=== PATIENT | female | born 1990 | race Asian ===

== ENCOUNTER 2020-02-09 17:14 | Emergency (ER) | payer OTHER ==
[2020-02-09] MEDS ORDERED: ONDANSETRON 4 MG/2 ML VIAL IVP STA (17:28)
[2020-02-09] MEDS ORDERED: HYDROmorphone 1 MG/ML CARPUJECT IVP STA (17:28)
--- NOTE | 2020-02-09 17:28 | ED Physician Documentation ---
PD HPI ABD PAIN - Stated complaint Stated Complaint: ABD PAIN - History obtained from History obtained from: Patient - Additional information Additional information: 29-year-old woman with history of type 2 diabetes and remote open appendectomy presents with fairly sudden onset left-sided pelvic pain starting this afternoon. No history of ovarian cyst. She had a Nexplanon which was removed about a week ago. Review of Systems Ten Systems: 10 systems reviewed and negative Constitutional: reports: Reviewed and negative Cardiac: reports: Reviewed and negative Respiratory: reports: Reviewed and negative PD PAST MEDICAL HISTORY - Allergies Allergies/Adverse Reactions: Allergies Allergy/AdvReac Type Severity Reaction Status Date / Time No Known Drug Allergies Allergy Verified 02/09/20 17:28 PD ED PE NORMAL - Vitals Vital signs reviewed: Yes - General General: Alert and oriented X 3, No acute distress - Cardiac Cardiac: RRR, No murmur - Respiratory Respiratory: No respiratory distress, Clear bilaterally - Abdomen Abdomen: Normal bowel sounds, Soft, Other (Quite tender in the left low abdomen without surgical signs) - Back Back: No CVA TTP, No spinal TTP - Derm Derm: Normal color, Warm and dry - Extremities Extremities: No edema, No calf tenderness / cord - Neuro Neuro: Alert and oriented X 3, Normal speech Results - Vitals Vitals: Vital Signs - 24 hr 02/09/20 02/09/20 17:20 18:43 Temperature 98.9 C H Heart Rate 97 89 Respiratory 18 18 Rate Blood Pressure 165/106 H 142/90 H O2 Saturation 100 99 Oxygen O2 Source Room air - Labs Labs: Laboratory Tests 02/09/20 02/09/20 02/09/20 17:32 17:43 17:43 WBC 10.0 RBC 5.00 Hgb 14.2 Hct 44.7 MCV 89.4 MCH 28.4 MCHC 31.8 L RDW 11.3 L Plt Count 309 MPV 8.7 Neut # (Auto) 6.0 Lymph # (Auto) 2.9 Ford # (Auto) 0.6 Eos # (Auto) 0.4 Baso # (Auto) 0.0 Absolute Nucleated RBC 0.00 Nucleated RBC % 0.0 Sodium 137 Potassium 3.7 Chloride 98 L Carbon Dioxide 24 Anion Gap 15.0 H BUN 8 Creatinine 0.5 Estimated GFR (MDRD) 147 Glucose 105 H Calcium 9.7 Total Bilirubin 0.6 AST 23 ALT 41 Alkaline Phosphatase 51 Total Protein 7.8 Albumin 4.4 Globulin 3.4 Albumin/Globulin Ratio 1.3 Lipase 22 Urine Color LT. YELLOW Urine Clarity CLEAR Urine pH 6.0 Ur Specific [place] 1.010 Urine Protein NEGATIVE Urine Glucose (UA) NEGATIVE Urine Ketones TRACE Urine Occult Blood NEGATIVE Urine Nitrite NEGATIVE Urine Bilirubin NEGATIVE Urine Urobilinogen 0.2 (NORMAL) Ur Leukocyte Esterase NEGATIVE Ur Microscopic Review NOT INDICATED Urine Culture Comments NOT INDICATED Urine HCG, Qual NEGATIVE PD MEDICAL DECISION MAKING - ED course ED course: 29-year-old woman presents with left pelvic pain a week after having Nexplanon removed which may be causative. CT imaging demonstrates potential thick-walled bladder but not corresponding to any abnormalities on urinalysis, otherwise negative. On repeat examination she was nontender. Departure - Departure Disposition: 01 Home, Self Care Clinical Impression: Pelvic pain Condition: Good Record reviewed to determine appropriate education?: Yes Instructions: ED Pelvic Pain [facility] Comments: Ibuprofen as needed for pain, return for new or worsening symptoms or if not better in the next 24 hours. Follow-up with your primary care physician, next available appointment.
[2020-02-09 17:40] LABS: BILIRUBIN,URINE NEGATIVE (NEGATIVE); GLUCOSE, URINE (UA) NEGATIVE (NEGATIVE); KETONES,URINE (UA) TRACE mg/dL (NEGATIVE); LEUKOCYTE ESTERASE, URINE NEGATIVE (NEGATIVE); NITRITE,URINE NEGATIVE (NEGATIVE); OCCULT BLOOD,URINE NEGATIVE (NEGATIVE); PROTEIN,URINE NEGATIVE (NEGATIVE); UROBILINOGEN,URINE 0.2 (NORMAL) E.U./dL (NORMAL)
[2020-02-09 17:42] LABS: CLARITY,URINE CLEAR (CLEAR); HCG UR QUAL NEGATIVE
[2020-02-09 17:59] LABS: BASOPHILS % (AUTO) 0.4 %; EOSINOPHILS # (AUTO) 0.4 10^3/uL (0.0-0.7); EOSINOPHILS % (AUTO) 3.8 %; HGB - HEMOGLOBIN 14.2 g/dL (12.0-16.0); LYMPHOCYTES # (AUTO) 2.9 10^3/uL (1.5-3.5); LYMPHOCYTES % (AUTO) 29.1 %; MEAN CORPUSCULAR HEMOGLOBIN 28.4 pg (27.0-31.0); MEAN CORPUSCULAR HGB CONC 31.8 g/dL (32.0-36.0); MEAN CORPUSCULAR VOLUME 89.4 fL (81.0-99.0); MEAN PLATELET VOLUME 8.7 fL (7.9-10.8); MONOCYTES # (AUTO) 0.6 10^3/uL (0.0-1.0); NEUTROPHILS % (AUTO) 60.4 %; PLT - PLATELET COUNT 309 10^3/uL (130-450); RED CELL DISTRIBUTION WIDTH 11.3 % (12.0-15.0)
[2020-02-09 18:12] LABS: ALBUMIN 4.4 g/dL (3.2-5.5); ALBUMIN/GLOBULIN RATIO 1.3 (1.0-2.2); BILIRUBIN,TOTAL 0.6 mg/dL (0.2-1.0); CALCIUM 9.7 mg/dL (8.5-10.3); CREATININE 0.5 mg/dL (0.4-1.0); TOTAL PROTEIN 7.8 g/dL (6.7-8.2)
[2020-02-09] MEDS ORDERED: IOVERSOL 320 100 ML VIAL IVP ONE ×2 (18:24→18:39)
[2020-02-09 18:44] VITALS: BP 142/90
--- NOTE | 2020-02-09 18:55 | CT Report ---
PROCEDURE: Abdomen/Pelvis W INDICATIONS: IV only, L abd pain CONTRAST: IV CONTRAST: Optiray 320 ml: 100 PO CONTRAST: *NO PO CONTRAST TECHNIQUE: After the administration of 100 cc Optiray 320 IV contrast, 5 mm thick sections acquired from the brandon phragms to the symphysis. 5 mm thick coronal and sagittal reformats were acquired. For radiation do se reduction, the following was used: automated exposure control, adjustment of mA and/or kV accordi ng to patient size. COMPARISON: None. FINDINGS: Image quality: Excellent. ABDOMEN: Lung bases: Lung bases are clear. Heart size is normal. Solid organs: Liver and spleen are normal in size and enhancement. Gallbladder is normal. Biliary system is non dilated. Pancreas enhances normally. No adrenal nodules. Kidneys demonstrate normal size and enhancement, without hydronephrosis. Small left cortical renal cyst, too small to accuratel y characterize. Peritoneum and bowel: Bowel loops demonstrate normal wall thickness and caliber. No free fluid or a ir. Nodes and vessels: No retroperitoneal or mesenteric adenopathy by size criteria. Aorta and inferior vena cava are normal in size. Miscellaneous: No ventral hernias. PELVIS: Genitourinary: The uterus and ovaries appear normal. The urinary bladder wall is slightly thickened. No bladder calcifications.. Miscellaneous: No inguinal hernias or adenopathy. Bones: No suspicious bony lesions. No vertebral body compression fractures. IMPRESSION: 1. Urinary bladder wall thickening may indicate cystitis or under distention. Correlate clinically. 2. Otherwise normal CT. Reviewed by: Yolis Pitts MD on 02/09/2020 6:54 PM PST Approved by: Yolis Pitts MD on 02/09/2020 6:54 PM PST Station ID: [id number]
== END 2020-02-09 19:24 | disposition home or self-care (01) ==
LOC: ED 17:14
DX: R10.2 Pelvic and perineal pain (principal); E11.9 Type 2 diabetes mellitus without complications; Z90.89 Acquired absence of other organs
CPT/HCPCS: 36415; 74177; 80053; 81003; 81025; 83690; 85025; 96374; 99283; 99284; J1170; Q9967; 81001; 87086

== ENCOUNTER 2020-02-12 08:00 | Outpatient (CLI) | payer OTHER ==
[2020-02-12 11:59] LABS: CREATININE,URINE 228.3 mg/dL; MICROALBUM/CREATININE RATIO,UR 46.9 ug/mg (<30.0); MICROALBUMIN,URINE 10.7 mg/dL (0-300.0)
[2020-02-12 12:08] LABS: BASOPHILS % (AUTO) 0.6 %; EOSINOPHILS # (AUTO) 0.4 10^3/uL (0.0-0.7); HGB - HEMOGLOBIN 13.9 g/dL (12.0-16.0); LYMPHOCYTES # (AUTO) 2.1 10^3/uL (1.5-3.5); LYMPHOCYTES % (AUTO) 30.6 %; MEAN CORPUSCULAR HEMOGLOBIN 28.4 pg (27.0-31.0); MEAN CORPUSCULAR VOLUME 91.4 fL (81.0-99.0); MONOCYTES # (AUTO) 0.5 10^3/uL (0.0-1.0); MONOCYTES % (AUTO) 6.4 %; NEUTROPHILS # (AUTO) 3.9 10^3/uL (1.5-6.6); NEUTROPHILS % (AUTO) 55.3 %; PLT - PLATELET COUNT 327 10^3/uL (130-450); RED CELL DISTRIBUTION WIDTH 11.5 % (12.0-15.0)
[2020-02-12 12:12] LABS: ALBUMIN 4.2 g/dL (3.2-5.5); ALBUMIN/GLOBULIN RATIO 1.2 (1.0-2.2); ALKALINE PHOSPHATASE 45 IU/L (42-121); ALT ALANINE AMINOTRANSFERASE 49 IU/L (10-60); AST ASPARTATE AMINOTRANSFERASE 29 IU/L (10-42); BILIRUBIN,TOTAL 0.4 mg/dL (0.2-1.0); BUN - BLOOD UREA NITROGEN 9 mg/dL (6-20); CALCIUM 9.2 mg/dL (8.5-10.3); CARBON DIOXIDE - CO2 22 mmol/L (21-32); CHLORIDE 104 mmol/L (101-111); CHOL/HDL RATIO 3.4 (<4.4); CHOLESTEROL 172 mg/dL; CREATININE 0.5 mg/dL (0.4-1.0); GLUCOSE 123 mg/dL (70-100); HDL CHOLESTEROL 50 mg/dL; LDL CHOLESTEROL,CALCULATED 110 mg/dL; LDL/HDL RATIO 2.2 (<4.4); SODIUM 136 mmol/L (135-145); TOTAL PROTEIN 7.6 g/dL (6.7-8.2); VLDL CHOLESTEROL 12 mg/dL
[2020-02-12 12:20] LABS: HEMOGLOBIN A1c% 6.3 % (4.27-6.07)
== END 2020-02-12 23:59 | disposition home or self-care (01) ==
LOC: LAB.WCP 08:00
PROVIDERS: ATTEND Physician Assistant
DX: Z00.00 Encounter for general adult medical examination without abnormal findings (principal); Z79.899 Other long term (current) drug therapy; F41.1 Generalized anxiety disorder; R03.0 Elevated blood-pressure reading, without diagnosis of hypertension; E11.9 Type 2 diabetes mellitus without complications
CPT/HCPCS: 36415; 80053; 80061; 82043; 82570; 83036; 83721; 84443; 85025

== ENCOUNTER 2020-02-19 11:07 | Outpatient (CLI) | payer OTHER ==
[2020-02-19 11:41] VITALS: BP 109/70
--- NOTE | 2020-02-19 11:41 | SLEEP CARE CONSULTATION ---
Information from patient questionnaire entered by Maribeth Arvizu. I have reviewed and concur with the information entered by Maribeth Arvizu. This document represents the service I personally performed and the decisions made by me, Fide Sanz ARNP. History of Present Illness Service Date and Time: 02/19/2020 1107 Reason for Visit: New patient Chief Complaint: reports: Unrefreshed sleep (sometimes), Snoring, Observed pauses in breathing. denies: Insomnia, Excessive daytime sleepiness, Fatigue, Frequent awakenings at night Date of Onset: 1 year or more Usual bedtime: 3148-7308, occasionally 0000 Time it takes to fall asleep: 30-40 minutes, occasionally 60+ minutes Snores at night: Yes Observed to quit breathing while asleep: Yes Sleeps alone due to snoring: No Number of times waking at night: 2 Reasons for waking at night: reports: Snoring, Other (when wakes up). denies: Choking, Gasping for air Toss, Turn, or Twitch while sleeping: Yes Recalls having dreams: Yes Usually gets out of bed at: 0600 Feels refreshed in the morning: No Morning headache: No Sleepy or fatigued during the day: Yes Ever fallen asleep while driving: No Takes day naps: Yes (10-20 mins 1 x a week) Dreams during day naps: No Prior sleep studies: No Additional HPI information: I had the pleasure of seeing IGOR NEWBERRY today regarding the possibility of her having a sleep disorder. Her current complaints are snoring, heavily breathing when sleeping and has had observed pauses in breathing. She states that some days she does feel rested but other day she is fatigued. She has just been st arted on medication for hypertension. Her brothers and father snore as well but no diagnosis of sleep apnea. - Parasomnia Symptoms Ever been unable to move upon waking from sleep: No Walks in sleep: No Talks in sleep: Yes Ever acted out dreams in sleep: Yes Ever felt weak in the knees when startled or emotional: No Bothered by creepy, crawly, restless sensations in legs: No Problems with memory or concentration: No Subjective Initial [place] Sleepiness Scale score: 10 (in 2019) Past Medical History Past Medical History: reports: Hypertension, Diabetes, Asthma. denies: Coronary Heart Disease, Arrythmia, Anemia, Anxiety, Depression, GERD Social History The patient's occupation is a [employer]. Patient is and lives in [place]. Have you smoked in the past 12 months: No Alcohol use: Yes Alcohol amount and frequency: occasionally Caffeine use: Yes Caffeine amount and frequency: 1 cup/day Family History Family history of sleep disordered breathing: No Family Hx Sleep Apnea: Father: Snoring, Sibling: Snoring Allergies and Home Medications Drug allergies reviewed: Yes (NKDA) Home medication list reviewed: Yes Allergy and home medication list: Trulicity Metformin Albuterol just started high blood pressure medication, unsure of name Tylenol as needed Review of Systems Weight gain over past 5 years: 25 Weight loss over past 5 years: 10 Cardiovascular: reports: high blood pressure. denies: palpitations, chest pain, irregular heart rate or pulse Respiratory: reports: chronic cough. denies: shortness of breath Gastrointestinal: reports: heartburn. denies: difficulty swallowing Neurological: reports: headaches. denies: seizure, head trauma, speech dysfunction, gait or balance problems Psychiatric: denies: anxiety, depression, claustrophobia Ear/Nose/Throat: reports: wisdom teeth removed (still has 2 of them). denies: nasal congestion, sinus problems, nose bleeds, dry mouth/throat, injury to nose, tonsillectomy Endocrine: reports: excessive thirst, increased appetite, increased urination Musculoskeletal: reports: back pain, muscle pain or cramping Immunologic: denies: allergies to food or environment Physical Exam Blood Pressure: 109/70 Cuff size: wrist Heart Rate: 80 O2 Saturation: 99 Height: 4 ft 11 in Weight: 150 lb Body Mass Index: 30.2 BMI Classification: Obese Neck circumference: 15 (inches) Nostrils: patent to airflow Turbinates: swollen Mouth and throat: narrow oropharynx Hard palate: arched Uvula visualization: 50% Mallampati Class II Tongue: enlarged in size with teeth gee on lateral edges Tonsils: 2+ Chin and jaw: normal size and position Neck: normal w/o lymphadenopathy or thyromegaly Heart: regular rate and rhythm Lungs: clear bilaterally Impression and Plan 1. Suspected Obstructive Sleep Apnea-Hypopnea Syndrome, as suggested by a history of loud and irregular snoring, observed cessation of breath while asleep, unrefreshed sleep, and cognitive impairment. I reviewed with patient that a narrow oropharynx and obesity are common predisposing factors for obstructive sleep apnea-hypopnea syndrome. I recommend proceeding to polysomnography to confirm the diagnosis and to assess severity. If the patient has significant sleep disordered breathing, a manual CPAP titration study will also be performed to find the optimal treatment pressure. I informed the patient of what the sleep studies involve and after some discussion, obtained agreement to proceed. The pathophysiology of obstructive sleep apnea-hypopnea syndrome was discussed with the patient and health risks of cardiovascular and cerebrovascular disease if not treated. AAS brochure for obstructive sleep apnea-hypopnea syndrome given and reviewed. Risks of drowsy driving discussed in detail and patient advised to avoid long distance driving and to snout puller at th e first sign of drowsiness. Patient agreed to plan. * Schedule polysomnography +- manual CPAP titration study. * Avoid long distance driving or driving when feeling sleepy. * Avoid alcohol, sedative and muscle relaxant around bedtime. * Attempt to lose weight. * Review instructions provided by trained office staff on how to prepare for the sleep study. * Return for follow-up after sleep study completed. Counseling Topics: Weight loss health impact Visit Type: In Office Provider Statement: I spent 100% of the Face to Face Visit with the patient with greater than 50% spent counseling the patient and coordination of care.
== END 2020-02-19 11:08 | disposition home or self-care (01) ==
LOC: SC 11:07
PROVIDERS: ATTEND Nurse Practitioner Family
DX: R06.83 Snoring (principal); R06.81 Apnea, not elsewhere classified; G47.8 Other sleep disorders; R41.89 Other symptoms and signs involving cognitive functions and awareness; E66.9 Obesity, unspecified; Z68.30 Body mass index [BMI] 30.0-30.9, adult
CPT/HCPCS: 99203; 99212

== ENCOUNTER 2020-04-28 20:13 | Outpatient (CLI) | payer OTHER | END 2020-04-28 20:14 | disposition home or self-care (01) | LOC: SC 20:13 | PROVIDERS: ATTEND Nurse Practitioner Family | DX: G47.63 Sleep related bruxism (principal); E66.3 Overweight; Z68.30 Body mass index [BMI] 30.0-30.9, adult | CPT/HCPCS: 95810 ==

== ENCOUNTER 2020-05-06 08:17 | Outpatient (CLI) | payer OTHER ==
--- NOTE | 2020-05-06 09:16 | SLEEP CARE CONSULTATION ---
Information from patient questionnaire entered by Brenda Beatty. I have reviewed and concur with the information entered by Brenda Beatty. This document represents the service I personally performed and the decisions made by , Fide Sanz ARNP. History of Present Illness Service Date and Time: 05/06/2020 08 Initial [place] Sleepiness Scale score: 10 (in 2019) Current [place] Sleepiness Scale score: 10 Additional HPI information: IGOR NEWBERRY returns for follow up and results of the recently performed polysomnography. The patient was informed of the following findings: no significant sleep disordered breathing with an average AHI of 1.3 and kurt oxygen saturation of 92%. Bruxism noted. I explained the pathophysiology behind obstructive sleep apnea. Patient does not have sleep apnea and was advised how weight gain could increase the risk of developing sleep apnea in the future. Patient has moderate to loud snoring. Snoring can be reduced by weight loss. Weight loss is best achieved with diet consult. Patient instructed to contact PCP for referral. Snoring can also be treated with an oral appliance from a dentist. Advised to check insurance coverage. In addition, an ENT evaluation can be do to see if other treatment is indicated. Patient counseled not drink alcohol less than 4 hours before bedtime as it can increase snoring and apnea. Patient was cautioned about risks of drowsy driving until sleepiness symptoms resolve. Sleep Study - Results Type of Sleep Study: Polysomnography Prior sleep studies: No Polysomnography/Home Sleep Study results: IMPRESSION: The quality of the study is good. The patient had normal sleep efficiency. The sleep architecture was normal as well. Respiratory monitoring showed no significant sleep disordered breathing (AHI = 1.3) or hypoxia (kurt oxygen saturation of 92%). The rare respiratory events occurred during REM sleep (supine AHI = 1.5; non-supine = 0.00). Snore was moderate to loud in intensity. There was no significant periodic leg movement of sleep. Cardiac rhythm was normal sinus rhythm without significant arrhythmia. No abnormal behavior (parasomnia) observed during the night. Bruxism observed. Allergies and Home Medications Drug allergies reviewed: Yes (NKDA) Home medication list reviewed: Yes (new medications) Allergy and home medication list: Labetalol 100 mg 2 x a day Hydroxine 50 mg PRN Review of Systems Review of systems same as previous: Yes (no changes) Physical Exam Heart Rate: 72 O2 Saturation: 98 Height: 4 ft 11 in Weight: 147 lb Body Mass Index: 29.7 BMI Classification: Overweight Impression and Plan 1. Snoring but no significant sleep disordered breathing. Patient advised that often weight loss will reduce snoring as well as apnea risk. An oral appliance can also be used for snoring. This would require a dental consultation. Patient cautioned not to use other online appliances as can cause bite issues. A list of accredited dentists in area and one local dentist who makes oral appliances given. Patient is advised to check if insurance will cover. An ENT consult can also be helpful to determine if any other treatment is an option. 2. Bruxism, treatment as needed. Patient advised that she may follow up with her dentist for evaluation of any damage from bruxism and see if she needs a mouth guard. Patient cautioned not to use other online appliances as can cause bite issues. She voiced understanding. * Follow up with dentist for oral appliance for snoring and/or bruxism. * Attempt to lose weight * Avoid alcohol consumption near bedtime * The patient is cautioned about driving until sleepiness is completely resolved. * Return as needed. Counseling Topics: Weight loss health impact Visit Type: In Office Time Spent with Patient (minutes): 15 Provider Statement: I spent 100% of the Face to Face Visit with the patient with greater than 50% spent counseling the patient and coordination of care.
== END 2020-05-06 08:18 | disposition home or self-care (01) ==
LOC: SC 08:17
PROVIDERS: ATTEND Nurse Practitioner Family
DX: R06.83 Snoring (principal); G47.63 Sleep related bruxism; E66.3 Overweight; Z68.29 Body mass index [BMI] 29.0-29.9, adult
CPT/HCPCS: 99212

== ENCOUNTER 2020-05-27 08:00 | Outpatient (CLI) | payer OTHER ==
[2020-05-27 12:53] LABS: CREATININE,URINE 77.5 mg/dL; MICROALBUM/CREATININE RATIO,UR 20.6 ug/mg (<30.0); MICROALBUMIN,URINE 1.6 mg/dL (0-300.0)
[2020-05-27 13:24] LABS: ESTIMATED AVERAGE GLUCOSE 134 mg/dL (70-100); HEMOGLOBIN A1c% 6.3 % (4.27-6.07)
== END 2020-05-27 23:59 | disposition home or self-care (01) ==
LOC: LAB.WCP 08:00
PROVIDERS: ATTEND Physician Assistant
DX: E11.9 Type 2 diabetes mellitus without complications (principal)
CPT/HCPCS: 36415; 82043; 82570; 83036

== ENCOUNTER 2020-05-31 00:23 | Emergency (ER) | payer OTHER ==
[2020-05-31] MEDS ORDERED: KETOROLAC 60 MG/2 ML VIAL IM STA (00:59)
[2020-05-31] MEDS ORDERED: CHERRY SYRUP 10 ML UDC PO ONE (00:59)
[2020-05-31] MEDS ORDERED: DEXAMETHASONE 10 MG/ML VIAL PO STA (00:59)
--- NOTE | 2020-05-31 01:03 | ED Physician Documentation ---
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 She feels her hand is a bit weaker than usual and she has been using a heating pack to her neck as well as a traction pillow. She feels that she gets about an hours relief out of the traction pillow. Review of Systems Constitutional: denies: Fever Eyes: denies: Decreased vision Ears: denies: Ear pain Nose: denies: Congestion Throat: denies: Sore throat Cardiac: denies: Chest pain / pressure, Palpitations Respiratory: denies: Dyspnea, Cough GI: denies: Abdominal Pain, Nausea, Vomiting, Constipation, Diarrhea : denies: Dysuria, Frequency Skin: denies: Rash Musculoskeletal: reports: Neck pain, Extremity pain, Joint pain. denies: Back pain, Extremity swelling Neurologic: reports: Numbness. denies: Generalized weakness, Focal weakness PD PAST MEDICAL HISTORY - Past Medical History Past Medical History: Yes Cardiovascular: Hypertension Endocrine/Autoimmune: Type 2 diabetes - Past Surgical History Past Surgical History: Yes General: Appendectomy - Present Medications Home Medications: Ambulatory Orders Medication Instructions Recorded Confirmed Cyclobenzaprine [Flexeril] 10 mg PO TID PRN #20 tablet 05/31/20 HYDROcod/ACETAM 5/325 [[place] 5/325] 1 - 2 ea PO Q6H PRN #12 tablet 05/31/20 Labetalol [Trandate] 100 mg PO BID 05/31/20 05/31/20 Metformin HCl [Fortamet] 1,000 mg PO BID 05/31/20 05/31/20 - Allergies Allergies/Adverse Reactions: Allergies Allergy/AdvReac Type Severity Reaction Status Date / Time No Known Drug Allergies Allergy Verified 05/31/20 00:27 - Social History Does the pt smoke?: No Smoking Status: Never smoker Does the pt drink ETOH?: No Does the pt have substance abuse?: No - Immunizations Immunizations are current?: Yes - POLST Patient has POLST: No PD ED PE NORMAL - Vitals Vital signs reviewed: Yes (hypertensive ) - General General: Alert and oriented X 3, No acute distress, Well developed/nourished - HEENT HEENT: Atraumatic, PERRL, EOMI - Neck Neck: Supple, no meningeal sign, No bony TTP - Respiratory Respiratory: No respiratory distress - Derm Derm: Normal color, Warm and dry, No rash - Extremities Extremities: No deformity, No edema - Neuro Neuro: Alert and oriented X 3, 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 I am unable to demonstrate weakness of spinner hand, she is able to spread her fingers equally and able to do thumb to fingers. ) Eye Opening: Spontaneous Motor: Obeys Commands Verbal: Oriented GCS Score: 15 - Psych Psych: Normal mood, Normal affect Results - Vitals Vitals: Vital Signs - 24 hr 05/31/20 05/31/20 00:27 00:35 Temperature 36.6 C 36.6 C Heart Rate 90 90 Respiratory 16 16 Rate Blood Pressure 140/90 H 140/90 H O2 Saturation 99 99 Oxygen O2 Source Room air PD MEDICAL DECISION MAKING - ED course Complexity details: reviewed results, re-evaluated patient, considered differential, d/w patient ED course: 29-year-old female with symptoms consistent with a C7 cervical radiculopathy has been using a heating pack excessively and has excessive symptoms. She is not able to get into see a primary for least two more weeks. She has looked up her symptoms and she has not been successful with treatments that she has provided to her self. She did use a cervical traction pillow which is an inflatable traction pillow and she felt that this helped for about an hour. Her examination does not show obvious weakness and there is subjective numbness. The distribution of the patient's symptoms suggest a C7 disc. She is administered dexamethasone 10 mg orally and we will provide a short course of some pain medication a muscle relaxant. She has come to request advanced imaging which we are not able to do this evening. I did discuss with her that this is something we will require a prior authorization from her primary and that her symptoms will likely resolve prior to needing the scan. Departure - Departure Disposition: 01 Home, Self Care Clinical Impression: Cervical radiculopathy at C7 Condition: Stable Instructions: ED Cervical Radiculopathy Follow-Up: SILVIANO BYERS PA-C [Primary Care Provider] - Prescriptions: Cyclobenzaprine [Flexeril] 10 mg PO TID PRN #20 tablet PRN Reason: Spasms HYDROcod/ACETAM 5/325 [[place] 5/325] 1 - 2 ea PO Q6H PRN #12 tablet PRN Reason: Pain
[2020-05-31 01:21] VITALS: BP 138/89
== END 2020-05-31 01:20 | disposition home or self-care (01) ==
LOC: ED 00:23
DX: M54.12 Radiculopathy, cervical region (principal); I10 Essential (primary) hypertension; E11.9 Type 2 diabetes mellitus without complications; Z79.84 Long term (current) use of oral hypoglycemic drugs
CPT/HCPCS: 96372; 99283; 99284; A9270

== ENCOUNTER 2020-06-02 04:36 | Emergency (ER) | payer OTHER ==
--- NOTE | 2020-06-02 04:53 | ED Physician Documentation ---
History of Present Illness - Stated complaint Stated Complaint: RT SHOULDER PX - Chief complaint Chief Complaint: Ext Problem - History obtained from History obtained from: Patient - History of Present Illness Timing: How many weeks ago (2) Pain level now: 6 Improved by: rest Worsened by: partially exacerbated with movement right shoulder - Additonal information Additional information: c/o 2 weeks of atraumatic pain right neck and right trapezial ridge area with pain radiating down RUE to fingers (2nd, 3rd, 4th). 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 She was T+R from this ED 2 days ago for same. She says she has an appointment scheduled with her PMD but the soonest available isn't for another 2 weeks. She denies having a previous history of these symptoms. She says she took a vicodin (prescribed on the previous ED visit) last night and another dose (one tablet) this morning without relief. She is right hand dominant Review of Systems Constitutional: denies: Fever Skin: denies: Rash Musculoskeletal: reports: Neck pain, Extremity pain. denies: Extremity swelling, Joint swelling Neurologic: reports: Focal weakness (intermittent right hand agricultural economics teacher). denies: Numbness, Headache PD PAST MEDICAL HISTORY - Past Medical History Cardiovascular: Hypertension Endocrine/Autoimmune: Type 2 diabetes - Past Surgical History Past Surgical History: Yes General: Appendectomy - Present Medications Home Medications: Ambulatory Orders Medication Instructions Recorded Confirmed Cyclobenzaprine [Flexeril] 10 mg PO TID PRN #20 tablet 05/31/20 06/02/20 HYDROcod/ACETAM 5/325 [[place] 5/325] 1 - 2 ea PO Q6H PRN #12 tablet 05/31/20 06/02/20 Labetalol [Trandate] 100 mg PO BID 05/31/20 06/02/20 Metformin HCl [Fortamet] 1,000 mg PO BID 05/31/20 06/02/20 Oxycodone HCl/Acetaminophen 1 - 2 each PO Q6H PRN #14 tablet 06/02/20 [Percocet 5-325 mg Tablet] diazePAM [Valium] 5 mg PO BID PRN #15 tablet 06/02/20 - Allergies Allergies/Adverse Reactions: Allergies Allergy/AdvReac Type Severity Reaction Status Date / Time No Known Drug Allergies Allergy Verified 06/02/20 04:49 - Social History Does the pt smoke?: No Smoking Status: Never smoker Does the pt drink ETOH?: No Does the pt have substance abuse?: No - Immunizations Immunizations are current?: Yes - POLST Patient has POLST: No PD ED PE NORMAL - Vitals Vital signs reviewed: Yes - General General: Alert and oriented X 3, Well developed/nourished, Other (appears uncomfortable, tearful at times) - Neck Neck: Supple, no meningeal sign, No bony TTP - Cardiac Cardiac: RRR, No murmur - Respiratory Respiratory: No respiratory distress, Clear bilaterally - Derm Derm: Normal color, No rash - Extremities Extremities: Normal ROM s pain, No edema - Neuro Neuro: No motor deficit (strong and equal agricultural economics teacher strength), No sensory deficit (LTS intact in right hand, fingers) Results - Vitals Vitals: Vital Signs - 24 hr 06/02/20 06/02/20 04:40 06:27 Temperature 36.2 C L 36.5 C Heart Rate 79 63 Respiratory 18 16 Rate Blood Pressure 129/93 H 123/84 H O2 Saturation 100 98 Oxygen O2 Source Room air - Rads (name of study) chest xray Radiology: Prelim report reviewed, See rad report PD MEDICAL DECISION MAKING - ED course Complexity details: reviewed old records, reviewed results, re-evaluated patient, considered differential, d/w patient ED course: atraumatic pain mostly centered around the right trapezial ridge but also right side of neck and radiating down RUE. She has some degree of exacerbation with movement of the right shoulder, although she has intact ROM on exam (reports worse pain with ROM). unremarkable chest xray. further emergent testing is not indicated at this time. she is given IM toradol early in stay and on reevaluation she appears more comfortable. she is provided prescriptions for percocet and valium for analgesia and muscle relaxant property (valium), and instructed to only use these in place of the previous prescribed vicodin and flexeril. I instructed her to contact her primary care provider's office to inquire as to possibly being seen earlier than scheduled, and to return to the emergency department if worse. Her H+P are again c/w cervical radiculopathy Departure - Departure Disposition: 01 Home, Self Care Clinical Impression: Cervical radiculopathy Condition: Good Instructions: ED Cervical Radiculopathy Prescriptions: Oxycodone HCl/Acetaminophen [Percocet 5-325 mg Tablet] 1 - 2 each PO Q6H PRN #14 tablet PRN Reason: pain diazePAM [Valium] 5 mg PO BID PRN #15 tablet PRN Reason: Spasms Comments: You can take the percocet (oxycodone/acetaminophen) IN PLACE of the vicodin (hydrocodone/acetaminophen). Use whichever of the two medications is more effective and/or less side effects, but do not take both of these medications. You can take the valium (diazepam) IN PLACE of the flexeril (cyclobenzaprine). You can use whichever of the two medications is more effective and/or has less side effects, but do not take both of these medications. Discharge Date/Time: 06/02/20 06:34
[2020-06-02] MEDS ORDERED: KETOROLAC 60 MG/2 ML VIAL IM STA (05:17)
[2020-06-02 06:28] VITALS: BP 123/84
--- NOTE | 2020-06-02 10:19 | XRAY Report ---
PROCEDURE: Chest 2 View X-Ray INDICATIONS: right upper back / thoracic pain TECHNIQUE: 2 view(s) of the chest. COMPARISON: None. FINDINGS: Surgical changes and devices: None. Lungs and pleura: No pleural effusions or pneumothorax. Lungs are clear. Mediastinum: Mediastinal contours are normal. Heart size is normal. Bones and chest wall: No suspicious bony abnormalities. Soft tissues appear unremarkable. IMPRESSION: No acute pulmonary process. The above findings are concordant with preliminary report. Reviewed by: Maria Alejandra Prather MD on 06/02/2020 10:18 AM [facility] Approved by: Maria Alejandra Prather MD on 06/02/2020 10:18 AM [facility] Station ID: [id number]
== END 2020-06-02 06:34 | disposition home or self-care (01) ==
LOC: ED 04:36
DX: M54.12 Radiculopathy, cervical region (principal); E11.9 Type 2 diabetes mellitus without complications
CPT/HCPCS: 96372; 99283; 99284

== ENCOUNTER 2020-06-23 12:56 | Outpatient (CLI) | payer OTHER ==
--- NOTE | 2020-06-23 16:07 | XRAY Report ---
PROCEDURE: Cervical Spine w/Flex/Ext INDICATIONS: CERVICAL DISORDER WITH RADICULOPATHY TECHNIQUE: 7 views of the cervical spine were acquired. COMPARISON: None. FINDINGS: Bones: No fractures or dislocations to the T1 level. No suspicious bony lesions. There is loss of n ormal cervical lordosis. Mild disc space narrowing and endplate osteophyte formation at C5-C6 and C6- C7, indicating degenerative disc disease. There is limited range of motion with no significant change in alignment throughout limited range of motion. Soft tissues: Prevertebral soft tissues are normal in thickness. IMPRESSION: 1. Mild mid/lower cervical degenerative disc disease. 2. No instability throughout limited range of motion. 3. No acute fracture. No osseous lesion. If symptoms and/or clinical suspicion for pathology continue , further assessment with repeat plain films, or advanced imaging (e.g., CT, MRI, or bone scan) is re commended for further assessment. Reviewed by: Carri Barkley MD on 06/23/2020 4:06 PM PDT Approved by: Carri Barkley MD on 06/23/2020 4:06 PM PDT Station ID: [id number]
== END 2020-06-23 12:57 | disposition home or self-care (01) ==
LOC: DI.N 12:56
PROVIDERS: ATTEND Physician Assistant
DX: M50.322 Other cervical disc degeneration at C5-C6 level (principal)

== ENCOUNTER 2020-10-07 18:28 | Emergency (ER) | payer OTHER ==
[2020-10-07 18:44] VITALS: BP 146/90
--- NOTE | 2020-10-07 18:53 | ED Physician Documentation ---
PD HPI SKIN - Stated complaint Stated Complaint: LT BREAST PX/RED/HOT - Chief complaint Chief Complaint: Wound - History obtained from History obtained from: Patient - History of Present Illness Timing - onset: How many days ago (2-3) Timing - details: Gradual onset, Still present (worsening) Quality / character: Painful, Discolored (red patchy), Swelling. No: Draining Associated symptoms: No: Fever, Myalgias, N/V/D Contributing factors: Other (not , no piercings, no noted local injury). No: Exposed to Poison bety/oak, Insect bite /sting, Recent illness Recently seen: Not recently seen Review of Systems Constitutional: denies: Fever, Chills, Myalgias Nose: denies: Rhinorrhea / runny nose, Congestion Throat: denies: Sore throat Respiratory: denies: Cough PD PAST MEDICAL HISTORY - Past Medical History Cardiovascular: Hypertension Endocrine/Autoimmune: Type 2 diabetes - Past Surgical History Past Surgical History: Yes General: Appendectomy - Present Medications Home Medications: Ambulatory Orders Medication Instructions Recorded Confirmed Cyclobenzaprine [Flexeril] 10 mg PO TID PRN #20 tablet 05/31/20 06/02/20 HYDROcod/ACETAM 5/325 [[place] 5/325] 1 - 2 ea PO Q6H PRN #12 tablet 05/31/20 06/02/20 Labetalol [Trandate] 100 mg PO BID 05/31/20 06/02/20 Metformin HCl [Fortamet] 1,000 mg PO BID 05/31/20 06/02/20 Oxycodone HCl/Acetaminophen 1 - 2 each PO Q6H PRN #14 tablet 06/02/20 [Percocet 5-325 mg Tablet] diazePAM [Valium] 5 mg PO BID PRN #15 tablet 06/02/20 Ibuprofen [Motrin] 600 mg PO TID PRN #15 tab 10/07/20 cephALEXin [Keflex] 500 mg PO QID 5 Days #20 cap 10/07/20 - Allergies Allergies/Adverse Reactions: Allergies Allergy/AdvReac Type Severity Reaction Status Date / Time No Known Drug Allergies Allergy Verified 10/07/20 18:42 - Social History Does the pt smoke?: No Smoking Status: Never smoker Does the pt drink ETOH?: No Does the pt have substance abuse?: No - Immunizations Immunizations are current?: Yes - POLST Patient has POLST: No PD ED PE NORMAL - Vitals Vital signs reviewed: Yes - General General: Alert and oriented X 3, No acute distress, Well developed/nourished - Cardiac Cardiac: RRR, No murmur - Respiratory Respiratory: Clear bilaterally - Derm Derm: Normal color, Warm and dry, Other (left breast with redness in areas around the areola, with tenderness. No areas of fluctuance. Nipple appears normal. She states mild discharge yesterday, but none noted now. No skin sores noted. ) Results - Vitals Vitals: Oxygen O2 Source Room air PD MEDICAL DECISION MAKING - ED course Complexity details: considered differential (appears mastitis, non-post . No local skin lesions. ), d/w patient Departure - Departure Disposition: 01 Home, Self Care Clinical Impression: Mastitis in female Condition: Stable Record reviewed to determine appropriate education?: Yes Instructions: ED Breast Infec Follow-Up: SILVIANO BYERS PA-C [Primary Care Provider] - Prescriptions: cephALEXin [Keflex] 500 mg PO QID 5 Days #20 cap Ibuprofen [Motrin] 600 mg PO TID PRN #15 tab PRN Reason: Pain Comments: Warm moist towels to the area periodically through the day to improve blood flow to the area and help fight off the infection. Anti-inflammatory of ibuprofen 3 times a day with food for the next 3 to 5 days. Cephalexin antibiotic as directed 4 times a day for the next 5 days. I would anticipate improvement in this over the next 2 to 3 days and resolved certainly by 3 to 5 days. Recheck if not better in that timeframe or if worsening. Discharge Date/Time: 10/07/20 19:13
[2020-10-07] MEDS ORDERED: cephALEXin 250 MG CAPSULE PO STA (19:00)
[2020-10-07] MEDS ORDERED: IBUPROFEN 600 MG TABLET PO STA (19:00)
== END 2020-10-07 19:13 | disposition home or self-care (01) ==
LOC: ED 18:28
DX: N61.0 Mastitis without abscess (principal); E11.9 Type 2 diabetes mellitus without complications; I10 Essential (primary) hypertension
CPT/HCPCS: 99282; 99283; A9270

== ENCOUNTER 2020-12-08 08:00 | Outpatient (CLI) | payer OTHER ==
[2020-12-08 12:23] LABS: CALCIUM 9.2 mg/dL (8.5-10.3); CREATININE 0.5 mg/dL (0.4-1.0)
[2020-12-08 12:36] LABS: CREATININE,URINE 189.9 mg/dL; MICROALBUM/CREATININE RATIO,UR 15.3 ug/mg (<30.0); MICROALBUMIN,URINE 2.9 mg/dL (0-300.0)
[2020-12-08 13:15] LABS: ESTIMATED AVERAGE GLUCOSE 128 mg/dL (70-100); HEMOGLOBIN A1c% 6.1 % (4.27-6.07)
== END 2020-12-08 23:59 | disposition home or self-care (01) ==
LOC: LAB.S 08:00
PROVIDERS: ATTEND Physician Assistant
DX: E11.9 Type 2 diabetes mellitus without complications (principal)
CPT/HCPCS: 36415; 80048; 82043; 82570; 83036

== ENCOUNTER 2021-01-04 00:14 | Emergency (ER) | payer OTHER ==
[2021-01-04] MEDS ORDERED: SULFAMETH/TRIMETH DS 800/160 MG TABLET PO STA (00:45)
--- NOTE | 2021-01-04 00:46 | ED Physician Documentation ---
History of Present Illness - Stated complaint Stated Complaint: R LEG BLISTER, CONGESTION, FEVER, BODY ACHE - Chief complaint Chief Complaint: General - History obtained from History obtained from: Patient - History of Present Illness Timing: How many weeks ago - Additonal information Additional information: 30-year-old female presents to the emergency department this evening with 2 problems. Problem #1 she has nasal congestion a fever and cough. She is worried about the possibility of Covid. She is fully immunized. She has been symptomatic for 2 days. Problem #2 the patient has burned herself with hot liquid 1 week ago and she has some swelling and erythema that is worsening over the past day. She has been taking care of these henriquez putting cream on it and despite that the redness is occurred. Review of Systems Constitutional: reports: Fever, Chills, Myalgias Eyes: denies: Decreased vision Ears: denies: Ear pain Nose: reports: Rhinorrhea / runny nose, Congestion Cardiac: denies: Chest pain / pressure, Palpitations Respiratory: reports: Cough. denies: Dyspnea GI: denies: Abdominal Pain, Nausea, Vomiting : denies: Dysuria, Frequency Skin: reports: Other (burn to right calf has increased redness around the burn.). denies: Rash Musculoskeletal: reports: Extremity pain. denies: Neck pain, Back pain Neurologic: denies: Generalized weakness, Focal weakness, Numbness PD PAST MEDICAL HISTORY - Past Medical History Cardiovascular: Hypertension Endocrine/Autoimmune: Type 2 diabetes - Past Surgical History Past Surgical History: Yes General: Appendectomy - Present Medications Home Medications: Ambulatory Orders Medication Instructions Recorded Confirmed Cyclobenzaprine [Flexeril] 10 mg PO TID PRN #20 tablet 05/31/20 06/02/20 HYDROcod/ACETAM 5/325 [[place] 5/325] 1 - 2 ea PO Q6H PRN #12 tablet 05/31/20 06/02/20 Labetalol [Trandate] 100 mg PO BID 05/31/20 06/02/20 Metformin HCl [Fortamet] 1,000 mg PO BID 05/31/20 06/02/20 Oxycodone HCl/Acetaminophen 1 - 2 each PO Q6H PRN #14 tablet 06/02/20 [Percocet 5-325 mg Tablet] diazePAM [Valium] 5 mg PO BID PRN #15 tablet 06/02/20 Ibuprofen [Motrin] 600 mg PO TID PRN #15 tab 10/07/20 cephALEXin [Keflex] 500 mg PO QID 5 Days #20 cap 10/07/20 Sulfamethox/Trimeth 800/160 1 each PO BID #14 tablet 01/04/21 [Bactrim Ds] - Allergies Allergies/Adverse Reactions: Allergies Allergy/AdvReac Type Severity Reaction Status Date / Time No Known Drug Allergies Allergy Verified 01/04/21 00:23 - Social History Does the pt smoke?: No Smoking Status: Never smoker Does the pt drink ETOH?: No Does the pt have substance abuse?: No - Immunizations Immunizations are current?: Yes - POLST Patient has POLST: No PD ED PE NORMAL - Vitals Vital signs reviewed: Yes (hypertensive mild ) - General General: Alert and oriented X 3, No acute distress, Well developed/nourished - HEENT HEENT: Atraumatic, PERRL, EOMI - Neck Neck: Supple, no meningeal sign, No bony TTP - Cardiac Cardiac: RRR, No murmur - Respiratory Respiratory: No respiratory distress, Clear bilaterally - Abdomen Abdomen: Soft, Non tender - Back Back: No CVA TTP, No spinal TTP - Derm Derm: Normal color, Warm and dry, No rash - Extremities Extremities: No deformity, No edema - Neuro Neuro: Alert and oriented X 3, lining brusher 2-12 intact, No motor deficit, No sensory deficit, Normal speech Eye Opening: Spontaneous Motor: Obeys Commands Verbal: Oriented GCS Score: 15 - Psych Psych: Normal mood, Normal affect Results - Vitals Vitals: Vital Signs - 24 hr 01/04/21 00:23 Temperature 36.4 C L Heart Rate 87 Respiratory 16 Rate Blood Pressure 138/83 H O2 Saturation 98 Oxygen O2 Source Room air - Labs Labs: Laboratory Tests 01/04/21 00:54 Nasal Adenovirus (PCR) NOT DETECTED Nasal B. parapertussis DNA (PCR) NOT DETECTED Nasal Coronavir 229E PCR NOT DETECTED Nasal Coronavir HKU1 PCR NOT DETECTED Nasal Coronavir NL63 PCR NOT DETECTED Nasal Coronavir OC43 PCR NOT DETECTED Nasal Enterovir/Rhinovir PCR NOT DETECTED Nasal Influenza B PCR NOT DETECTED Nasal Influenza A PCR NOT DETECTED Nasal Parainfluen 1 PCR NOT DETECTED Nasal Parainfluen 2 PCR NOT DETECTED Nasal Parainfluen 3 PCR NOT DETECTED Nasal Parainfluen 4 PCR NOT DETECTED Nasal RSV (PCR) NOT DETECTED Nasal B.pertussis DNA PCR NOT DETECTED Nasal C.pneumoniae (PCR) NOT DETECTED Long Human Metapneumo PCR NOT DETECTED Nasal M.pneumoniae (PCR) NOT DETECTED Nasal SARS-CoV-2 (PCR) DETECTED A PD MEDICAL DECISION MAKING - ED course Complexity details: reviewed old records, reviewed results, re-evaluated patient, considered differential, d/w patient ED course: 30-year-old female presents with a hot water burn to her right calf that has become superficially infected and the patient is complaining of symptoms consistent with Covid and concerned that she has Covid. A respiratory PCR is obtained showing she does have Covid and she is instructed return tomorrow for monoclonal antibody infusion. The patient is fully vaccinated with Moderna from July of this year. Departure - Departure Disposition: 01 Home, Self Care Clinical Impression: COVID-19 Infected superficial injury of right leg Qualifiers: Encounter type: initial encounter Qualified Code(s): S80.921A - Unspecified superficial injury of right lower leg, initial encounter Condition: Stable Instructions: ED Burn Wound Check FU Infec, ED Viral Syndrome Follow-Up: SILVIANO BYERS PA-C [Primary Care Provider] - Prescriptions: Sulfamethox/Trimeth 800/160 [Bactrim Ds] 1 each PO BID #14 tablet
[2021-01-04 01:53] LABS: B. PARAPERTUSSIS- RESP PCR PAN NOT DETECTED; B. PERTUSSIS- RESP PCR PANEL NOT DETECTED; C. PNEUMONIAE- RESP PCR PANEL NOT DETECTED; CORONAVIRUS 229E-RESP PCR NOT DETECTED; CORONAVIRUS HKU1-RESP PCR NOT DETECTED; CORONAVIRUS NL63-RESP PCR NOT DETECTED; CORONAVIRUS OC43-RESP PCR NOT DETECTED; HUMAN METAPNEUMOVIRUS NOT DETECTED; INFLUENZA A- RESP PCR PANEL NOT DETECTED; INFLUENZA B - RESP PCR PANEL NOT DETECTED; M. PNEUMONIAE- RESP PCR PANEL NOT DETECTED; PARAINFLUENZA VIRUS 1 NOT DETECTED; PARAINFLUENZA VIRUS 2 NOT DETECTED; PARAINFLUENZA VIRUS 3 NOT DETECTED; PARAINFLUENZA VIRUS 4 NOT DETECTED; RHINOVIRUS/ENTEROVIRUS NOT DETECTED; RSV- RESP PCR PANEL NOT DETECTED; SARS-CoV-2 -RESP PCR PANEL DETECTED
[2021-01-04 02:10] VITALS: BP 136/95
== END 2021-01-04 02:09 | disposition home or self-care (01) ==
LOC: ED 00:14
DX: U07.1 COVID-19 (principal); R06.00 Dyspnea, unspecified; R05.9 Cough, unspecified; T24.231A Burn of second degree of right lower leg, initial encounter; L08.9 Local infection of the skin and subcutaneous tissue, unspecified; X11.8XXA Contact with other hot tap-water, initial encounter; I10 Essential (primary) hypertension; E11.9 Type 2 diabetes mellitus without complications; Z79.84 Long term (current) use of oral hypoglycemic drugs
CPT/HCPCS: 0202U; 99284; A9270; M0243

== ENCOUNTER 2021-01-04 11:44 | Emergency (ER) | payer OTHER ==
--- NOTE | 2021-01-04 12:43 | ED Physician Documentation ---
PD HPI DYSPNEA - Stated complaint Stated Complaint: COV + WAS ASKED TO RETURN - Chief complaint Chief Complaint: Resp - History obtained from History obtained from: Patient - History of Present Illness Timing - onset: How many days ago (The patient has had aches and fevers and cough for the last 2 to 3 days. Seen last night in the ER here and diagnosed with Covid. Was directed to return to the ER today for monoclonal antibody therapy if she desired.) Timing - onset during: Light activity Timing - duration: Days (2-3) Timing - details: Gradual onset, Still present Inciting event(s): URI (Dx with COVID last nightin ER.) Recently seen: Emergency Dept (last night and directed to return for MAB therapy today.) Review of Systems Constitutional: reports: Chills, Myalgias Nose: reports: Congestion. denies: Rhinorrhea / runny nose Throat: denies: Sore throat Cardiac: denies: Chest pain / pressure Respiratory: reports: Dyspnea, Cough. denies: Wheezing GI: denies: Vomiting, Diarrhea Neurologic: denies: Altered mental status, Headache PD PAST MEDICAL HISTORY - Past Medical History Cardiovascular: Hypertension Endocrine/Autoimmune: Type 2 diabetes - Past Surgical History Past Surgical History: Yes General: Appendectomy - Present Medications Home Medications: Ambulatory Orders Medication Instructions Recorded Confirmed Cyclobenzaprine [Flexeril] 10 mg PO TID PRN #20 tablet 05/31/20 06/02/20 HYDROcod/ACETAM 5/325 [[place] 5/325] 1 - 2 ea PO Q6H PRN #12 tablet 05/31/20 Labetalol [Trandate] 100 mg PO BID 05/31/20 06/02/20 Metformin HCl [Fortamet] 1,000 mg PO BID 05/31/20 06/02/20 Oxycodone HCl/Acetaminophen 1 - 2 each PO Q6H PRN #14 tablet 06/02/20 [Percocet 5-325 mg Tablet] diazePAM [Valium] 5 mg PO BID PRN #15 tablet 06/02/20 Ibuprofen [Motrin] 600 mg PO TID PRN #15 tab 10/07/20 cephALEXin [Keflex] 500 mg PO QID 5 Days #20 cap 10/07/20 Sulfamethox/Trimeth 800/160 1 each PO BID #14 tablet 01/04/21 [Bactrim Ds] - Allergies Allergies/Adverse Reactions: Allergies Allergy/AdvReac Type Severity Reaction Status Date / Time No Known Drug Allergies Allergy Verified 01/04/21 00:23 - Social History Does the pt smoke?: No Smoking Status: Never smoker Does the pt drink ETOH?: No Does the pt have substance abuse?: No - Immunizations Immunizations are current?: Yes - POLST Patient has POLST: No PD ED PE NORMAL - Vitals Vital signs reviewed: Yes - General General: Alert and oriented X 3, No acute distress, Well developed/nourished - HEENT HEENT: Pharynx benign - Neck Neck: Supple, no meningeal sign, No adenopathy - Cardiac Cardiac: RRR, No murmur - Respiratory Respiratory: Clear bilaterally - Derm Derm: Normal color, Warm and dry - Neuro Neuro: Alert and oriented X 3, No motor deficit, Normal speech Results - Vitals Vitals: Vital Signs - 24 hr 01/04/21 12:21 Temperature 36.4 C L Heart Rate 78 Respiratory 16 Rate Blood Pressure 140/85 H O2 Saturation 98 Oxygen O2 Source Room air PD MEDICAL DECISION MAKING - ED course Complexity details: reviewed old records, considered differential, d/w patient Departure - Departure Clinical Impression: COVID-19, Dyspnea Condition: Stable Comments: Continue instructions from prior ER visit earlier today. Return if having worsening trouble breathing or other concerns per
[2021-01-04] MEDS ORDERED: CASIRIVIMAB/IMDEVIMAB 10 ML in SODIUM CHLORIDE 0.9% 50 ML IV ONE (14:30)
[2021-01-04 15:41] VITALS: BP 134/80
== END 2021-01-04 16:10 | disposition home or self-care (01) ==
LOC: ED 11:44
DX: U07.1 COVID-19 (principal); R06.00 Dyspnea, unspecified; R05.9 Cough, unspecified; T24.231A Burn of second degree of right lower leg, initial encounter; L08.9 Local infection of the skin and subcutaneous tissue, unspecified; X11.8XXA Contact with other hot tap-water, initial encounter; I10 Essential (primary) hypertension; E11.9 Type 2 diabetes mellitus without complications; Z79.84 Long term (current) use of oral hypoglycemic drugs
CPT/HCPCS: J7040; Q0244

== ENCOUNTER 2022-04-25 09:49 | Outpatient (CLI) | payer OTHER ==
[2022-04-25 14:07] LABS: ESTIMATED AVERAGE GLUCOSE 174 mg/dL (70-100); HEMOGLOBIN A1c% 7.7 % (4.27-6.07)
== END 2022-04-25 09:50 | disposition home or self-care (01) ==
LOC: LAB 09:49
PROVIDERS: ATTEND Internal Medicine Endocrinology, Diabetes & Metabolism
DX: O24.119 Pre-existing type 2 diabetes mellitus, in pregnancy, unspecified trimester (principal); E11.65 Type 2 diabetes mellitus with hyperglycemia
CPT/HCPCS: 36415; 83036